=== PATIENT | female | born 1995 | race Caucasian/White ===

== ENCOUNTER 2017-02-12 16:08 | Emergency (ER) | payer SELFPAY ==
[2017-02-12 16:19] VITALS: RESP 18
[2017-02-12] MEDS ORDERED: IBUPROFEN 600 MG STARTER PACK 4 TAB BTL PO STA (17:35)
[2017-02-12 17:49] VITALS: BP 119/65; PULSE 92; TEMP 98
--- NOTE | 2017-02-12 17:58 | ED ---
ENT HPI - General Chief complaint: ENT Stated complaint: Cough/Fever Time Seen by Provider: 02/12/17 17:18 Source: patient, RN notes reviewed, old records reviewed Mode of arrival: ambulatory Limitations: no limitations - History of Present Illness Initial comments: Patient is a 21-year-old female with chief complaint of sore throat, sinus congestion and cough for approximately 2 days. She reports that multiple people sick in her house that she lives at. She denies any fever or chills. She denies any nausea or vomiting or abdominal pain chest pain or shortness of breath. She states that she did not receive a flu vaccination. He denies any significant past medical history. - Related Data Previous Rx's Medication Instructions Recorded Fluticasone Nasal [place] [Flonase 1 spray EA NOSTRIL DAILY #1 bottle 02/12/17 Nasal [place]] Guaifenesin/Pseudoephedrne HCl 1 each PO BID #20 tab.er.12h 02/12/17 [Mucinex D ER 1,200-120 mg Tab] Allergies Allergy/AdvReac Type Severity Reaction Status Date / Time No Known Allergies Allergy Verified 02/12/17 17:21 Review of Systems ROS Statement: Those systems with pertinent positive or pertinent negative responses have been documented in the HPI. ROS Other: All systems not noted in ROS Statement are negative. Past Medical History Past Medical History: No Reported History Additional Past Medical History / Comment(s): hep c History of Any Multi-Drug Resistant Organisms: None Reported Past Surgical History: Tonsillectomy Past Psychological History: Bipolar Smoking Status: Current every day smoker Past Alcohol Use History: None Reported Past Drug Use History: None Reported General Exam - General Exam Comments Initial Comments: Well-appearing 21-year-old female. No acute distress. Limitations: no limitations General appearance: alert, in no apparent distress Head exam: Present: atraumatic, normocephalic, normal inspection Eye exam: Present: normal appearance, PERRL, EOMI. Absent: scleral icterus, conjunctival injection, periorbital swelling ENT exam: Present: normal exam, mucous membranes moist Neck exam: Present: normal inspection. Absent: tenderness, meningismus, lymphadenopathy Respiratory exam: Present: normal lung sounds bilaterally. Absent: respiratory distress, wheezes, rales, rhonchi, stridor Cardiovascular Exam: Present: regular rate, normal rhythm, normal heart sounds. Absent: systolic murmur, diastolic murmur, rubs, gallop, clicks GI/Abdominal exam: Present: soft, normal bowel sounds. Absent: distended, tenderness, guarding, rebound, rigid Extremities exam: Present: normal inspection, full ROM, normal capillary refill. Absent: tenderness, pedal edema, joint swelling, calf tenderness Back exam: Present: normal inspection Neurological exam: Present: alert, oriented X3, CN II-XII intact Psychiatric exam: Present: normal affect, normal mood Skin exam: Present: warm, dry, intact, normal color. Absent: rash Course Vital Signs 02/12/17 02/12/17 16:16 17:48 Temperature 98.3 F 98.0 F Pulse Rate 101 H 92 Respiratory 18 18 Rate Blood Pressure 138/89 119/65 O2 Sat by Pulse 98 98 Oximetry Medical Decision Making - Medical Decision Making Patient's 21-year-old female to complain of sore throat, cough and sinus congestion for 2 days. She states that she has been taking Motrin, couple decongestant. Patient denies any nausea vomiting chest and shortness of breath. Rapid strep and influenza are obtained. Patient's physical exam is fine she is no evidence of wheezing or signs of respiratory distress. Patient is negative influenza and strep screen. Advised patient she is follow-up with primary care provider if symptoms continue persist. Patient will be discharged with anti-inflammatory medication and advised to take decongestions. Patient received treatment plan will comply. - Lab Data Lab Results 02/12/17 02/12/17 Range/Units 17:41 17:41 Influenza Type A RNA Not Detected (Not Detectd) Influenza Type B (PCR) Not Detected (Not Detectd) Group A Strep Rapid Negative (Negative) Disposition Clinical Impression: Upper respiratory infection Disposition: HOME SELF-CARE Condition: Good Instructions: Upper Respiratory Infection (ED) Additional Instructions: Patient has a continue to dose Motrin Tylenol for fevers. Take decongestant Mucinex as well as he is to return to the emergency department if any alarming signs or symptoms occur. Prescriptions: Fluticasone Nasal [place] [Flonase Nasal [place]] 1 spray EA NOSTRIL DAILY #1 bottle Guaifenesin/Pseudoephedrne HCl [Mucinex D ER 1,200-120 mg Tab] 1 each PO BID # 20 tab.er.12h Referrals: Tan Carnes MD [REFERRING] - 1-2 days Time of Disposition: 18:12
== END 2017-02-12 18:30 | disposition home or self-care (01) ==
LOC: EC 16:08
DX: J06.9 Acute upper respiratory infection, unspecified (principal); F17.200 Nicotine dependence, unspecified, uncomplicated
CPT/HCPCS: 87081; 87430; 87502; 99284